=== PATIENT | female | born 1955 | race Caucasian/White ===

== ENCOUNTER 2017-01-28 08:34 | Day surgery (SDC) | payer OTHER, MEDICAID ==
[~2017-01-28] VITALS: Ht 160 cm; Wt 59.1 kg
[~2017-01-28 08:34] MED LIST: ATOR80TA PO; BACT2OIN TOP; ESTR1.25; FENO50TA PO; FURO1TAB93 PO; GLUCTAB PO; HYDR-3133 PO; LANTUSP SQ; LEVE750T8 PO; LISI40TA PO; NAPR550 PO; NOVOLOGP2 SQ; VERA240CR PO; ZOFR4TAB3 PO
[2017-01-28 08:46] VITALS: BP 193/81; PULSE 63; RESP 18; TEMP 97.9; O2SAT 98
[2017-01-28] MEDS ORDERED: LEVE750T8 PO (08:57)
[2017-01-28] MEDS ORDERED: ATOR20TA15 PO (08:57)
[2017-01-28] MEDS ORDERED: NAPR500T PO (08:57)
[2017-01-28] MEDS ORDERED: FLUN25I EACH NARE (08:57)
[2017-01-28] MEDS ORDERED: TIZA4TAB PO (08:57)
[2017-01-28] MEDS ORDERED: VERA360C PO (08:57)
[2017-01-28] MEDS ORDERED: ESTR1.25 PO (08:57)
[2017-01-28] MEDS ORDERED: LISI40TA PO (08:57)
[2017-01-28 09:43] LABS: APTT (PATIENT) 28.7 SEC (24.3-30.1); INTERNATIONAL NORMALIZED RATIO 0.9 RATIO; PROTHROMBIN TIME - PATIENT 10.1 SEC (9.8-11.6)
[2017-01-28 10:55] VITALS: BP 169/89; PULSE 48; PULSE 51; RESP 16; TEMP 97.6; O2SAT 97
--- NOTE | 2017-01-28 11:00 | PD.RAD ---
Post Procedure Progress Note Pre Procedure Diagnosis: (1) Generalized seizure Post Procedure Diagnosis: (1) Generalized seizure Procedure Date: Jan 28, 2017 Supervising Radiologist: Alexandro Byrnes JR Proceduralist/Assist: RT Alexa(R)(CV) Anesthesia: Local Plan of Activity Patient to Unit: ROPU Patient Condition: Good See PACS Report for procedural detail/treatment Spinal Procedure Lumbar Puncture L3-L4 Fluid Removal (CCs): 11 Fluid Description: Clear Puncture Time: 10:41 Findings: Opening pressure: 14.8 cm H2O Jr. Fitz,Alexandro Galeano MD Jan 28, 2017 11:00
[2017-01-28 12:17] LABS: CSF LYMPHOCYTES 0 %; CSF NEUTROPHILS 0 %; GROSS BLOOD TUBE #1 0 (0); GROSS BLOOD TUBE #2 0 (0); GROSS BLOOD TUBE #3 0 (0); GROSS BLOOD TUBE #4 0 (0); SUPERNATE COLOR TUBE #1 CLEAR (CLEAR); SUPERNATE COLOR TUBE #2 CLEAR (CLEAR); SUPERNATE COLOR TUBE #3 CLEAR (CLEAR); SUPERNATE COLOR TUBE #4 CLEAR (CLEAR); VOLUME TUBE # 1 2.6 ML; VOLUME TUBE # 2 2.5 ML; VOLUME TUBE # 3 2.5 ML; VOLUME TUBE # 4 2.6 ML; WBC TUBE #4 0 /MM3 (0-10)
[2017-01-28 13:30] VITALS: BP 164/89; PULSE 60; RESP 16; O2SAT 96
--- NOTE | 2017-01-28 14:11 | RADRPT ---
EXAM DATE/TIME: 01/28/2017 10:47 [facility] COMPARISON: No previous studies available for comparison. INDICATIONS : Evaluate for multiple sclerosis. MEDICAL HISTORY : 1.breast cancer 2. high cholesterol 3. HTN 4. seizures 5. DM 6. kidney disease 7. neuropathy SURGICAL HISTORY : 1. Breast surgery x2 2.neck and spine surgery 3. bilateral hand surgery 4. hysterectomy 5. teeth extractions 6. cholecystectomy 2. ENCOUNTER: Initial ACUITY: 1 year PAIN SCORE: 0/10 LUMBAR PUNCTURE TIME: 1041 hours FLUORO TIME: 0.8 minutes IMAGE SERIES: 0 ACCESS LEVEL: L3-4 OPENING PRESSURE: 14.8 cm of water Not requested. FLUID: 11 cc of clear CSF was collected and sent to the laboratory for analysis. PROCEDURE : 1. Fluoroscopic guided lumbar puncture. 2. Recording of opening pressure. The risks, benefits and alternatives to the procedure were explained and verbal and written consent w as obtained. The site was prepped in sterile fashion. Full sterile technique was used, including ca p, mask, sterile gloves and gown and a large sterile sheet. Hand hygiene and 2% chlorhexidine and/or betadine/alcohol prep was utilized per protocol for cutaneous antisepsis. The skin and subcutaneous tissues were infiltrated with local anesthetic solution. With fluoroscopic guidance the lumbar thecal sac was punctured at the above level described above and the opening pressure was recorded. The above described fluid was removed without difficulty. The patient tolerated the procedure well and there were no complications. CONCLUSION: Uncomplicated fluoroscopically guided lumbar puncture with pressures as above. Alexandro Byrnes Jr., MD on January 28, 2017 at 14:09 Board Certified Radiologist. This report was verified electronically.
[2017-01-29 16:20] LABS: ALBUMIN SERUM 4060 mg/dL (3200 - 4800); IGG CSF 2.2 mg/dL (<=8.1); IGG INDEX CSF 0.41 (<=0.85); IGG SERUM 880 mg/dL (767 - 1590); IGG/ALBUMIN CSF 0.09 (<=0.21); IGG/ALBUMIN SERUM 0.22 (<=0.40); OLIGOCLONAL BANDING CSF 0 bands (()); OLIGOCLONAL BANDING INTERPRET 0 bands (<4); OLIGOCLONAL BANDING SERUM 0 bands (())
[2017-01-29 16:48] LABS: LYME IGG IMMUNOBLOT CSF None Detected bands (None Detected); LYME IGM IMMUNOBLOT CSF None Detected bands (None Detected)
[2017-01-30 19:53] LABS: VDRL CSF NON-REACTIVE (())
[2017-01-31 11:07] LABS: CSF CRYPTOCOCCUS AG CONF ND (NOT DETECTD)
== END 2017-01-28 13:45 | disposition home or self-care (01) ==
LOC: HROP 08:34 → HRIP 08:34 → HROP 13:45
PROVIDERS: ATTEND Psychiatry & Neurology Neurology
DX: G35 Multiple sclerosis (principal); I10 Essential (primary) hypertension; R56.9 Unspecified convulsions; Z85.3 Personal history of malignant neoplasm of breast
CPT/HCPCS: 62270; 77003; 82040; 82042; 82784; 82945; 83873; 83916; 84157; 85610; 85730; 86403; 86592; 86618; 87015; 87070; 87102; 87116; 87205; 87206; 89051

== ENCOUNTER 2017-04-13 17:01 | Emergency (ER) | payer OTHER, MEDICAID ==
[~2017-04-13 17:01] MED LIST changes: +ATOR20TA15 PO; -ATOR80TA PO; -BACT2OIN TOP; -ESTR1.25; +ESTR1.25 PO; -FENO50TA PO; +FLUN25I EACH NARE; -FURO1TAB93 PO; -GLUCTAB PO; -HYDR-3133 PO; -LANTUSP SQ; +NAPR500T2 PO; -NAPR550 PO; -NOVOLOGP2 SQ; +TIZA4TAB PO; -VERA240CR PO; +VERA360C PO; -ZOFR4TAB3 PO
[2017-04-13] MEDS ORDERED: SODIUM CHLOR 0.9% 1000 ML INJ 1,000 ML IV SCH (17:20)
[2017-04-13] MEDS ORDERED: ONDANSETRON HCL 4 MG/2 ML VIAL IVP ONE (17:30)
[2017-04-13] MEDS ORDERED: PANTOPRAZOLE SODIUM 40 MG VIAL IVP ONE (17:30)
[2017-04-13] MEDS ORDERED: SODIUM CHLORIDE 0.9% FLUSH 10 ML FLUSH IV FLUSH PRN (17:30)
[2017-04-13] MEDS ORDERED: HYDROmorphone HCL PF 2 MG/ML VIAL IVS ONE (17:30)
[2017-04-13] MEDS ORDERED: LIDOCAINE VISCOUS 2% SOLN 15 ML UDC PO ONE (17:30)
[2017-04-13] MEDS ORDERED: ALUMINUM/MAGNESIUM/SIMETH 30 ML CUP PO ONE (17:30)
[2017-04-13] MEDS ORDERED: METF500T PO (17:31)
--- NOTE | 2017-04-13 17:31 | PD ---
HPI Chief Complaint: Abdominal Pain Time Seen by Provider: 17:16 Travel History International Travel<30 days: No Contact w/Intl Traveler<30days: No Traveled to known affect area: No History of Present Illness HPI 62-year-old female with history of diabetes, pancreatitis, here for evaluation of abdominal pain that feels similar to an episode of pancreatitis in the past. Patient reports that for the last 4 days she has been having worsening epigastric abdominal pain that radiates to her back him and described as sharp. She is not sure why she has had pancreatitis in the past. She does not abuse alcohol. She states that her cholesterol has been well controlled. She denies fevers or chills. She has felt nauseous but has not vomited. No diarrhea. Pain is worse with movements and palpation as well as after eating. History of hysterectomy, cholecystectomy, bilateral tubal ligation. No chest pain or dyspnea. No urinary symptoms. PFSH Past Medical History Blood Disorders: No Bipolar Disorder: Yes Depression: Yes Cancer: No Cardiovascular Problems: No High Cholesterol: Yes Diabetes: Yes Diminished Hearing: No Endocrine: Yes Gastrointestinal Disorders: Yes (gastroparesis) GERD: Yes Genitourinary: Yes (fibroid uterus) Hiatal Hernia: No Hypertension: Yes Musculoskeletal: Yes (sciatica) Neurologic: Yes (dm neuropathy) Psychiatric: Yes (bipolar) Reproductive: No Respiratory: No Immunizations Current: No Pancreatitis: Yes Seizures: Yes (this admission ) Thyroid Disease: No Triglycerides - High: Yes Menopausal: Yes Past Surgical History AICD: No Cholecystectomy: Yes Gynecologic Surgery: Yes (LEFT BREAST X 2) Hysterectomy: Yes Joint Replacement: No Neurologic Surgery: Yes (CERVICAL DISC REMOVAL) Pacemaker: No Other Surgery: Yes (HEMORROIDECTOMY/NECK) Social History Alcohol Use: No Tobacco Use: No Substance Use: No Allergies-Medications (Allergen,Severity, Reaction): Coded Allergies: enalaprilat (Unverified Allergy, Severe, HIVES, RASH, 04/13/17) hydrochlorothiazide (Unverified Allergy, Severe, HAIR FALLS OUT, 04/13/17) latex (Unverified Allergy, Severe, HIVES,ITCH, 04/13/17) meperidine (Unverified Allergy, Severe, HIVES, ITCHING, 04/13/17) morphine (Unverified Allergy, Severe, 04/13/17) mushroom (Unverified Allergy, Severe, 04/13/17) tomato (Unverified Allergy, Severe, 04/13/17) Reported Meds & Prescriptions Reported Meds & Active Scripts Active Reported Metformin (Metformin HCl) 500 Mg Tab Unknown Dose PO BIDPC Flunisolide Nasal [place] (Flunisolide) 0.025 Mg/Act Naspr 2 [place] EACH NARE BID Lisinopril 40 Mg Tab 40 Mg PO BID Verapamil SR (Verapamil HCl) 360 Mg Cap 360 Mg PO DAILY Naproxen 500 Mg Tab 500 Mg PO BID Levetiracetam 750 Mg Tab 750 Mg PO BID Tizanidine (Tizanidine HCl) 4 Mg Tab 4 Mg PO TID Atorvastatin (Atorvastatin Calcium) 20 Mg Tab 20 Mg PO HS Premarin (Estrogens Conjugated) 1.25 Mg Tab 1.25 Mg PO DAILY Review of Systems Except as stated in HPI: all other systems reviewed are Neg Physical Exam Narrative GENERAL: Well-developed, well-nourished, comfortable, no apparent distress. SKIN: Focused skin assessment warm/dry. Lower back with circular areas with excoriations that appear to be from insect bites. No warmth or erythema or purulent drainage. Negative [place] or Bose Lo sign. HEAD: Atraumatic. Normocephalic. EYES: Pupils equal and round. No scleral icterus. No injection or drainage. ENT: Mucous membranes pink and moist. NECK: Trachea midline. No JVD. CARDIOVASCULAR: Regular rate and rhythm. RESPIRATORY: No accessory muscle use. Clear to auscultation. Breath sounds equal bilaterally. GASTROINTESTINAL: Abdomen soft, nondistended. Moderate epigastric tenderness without peritoneal signs. Rest of abdomen is mildly tender. Normal bowel sounds. No hernias. MUSCULOSKELETAL: No obvious deformities. No clubbing. No cyanosis. No edema. NEUROLOGICAL: Awake and alert. No obvious cranial nerve deficits. Motor grossly within normal limits. Normal speech. PSYCHIATRIC: Appropriate mood and affect; insight and judgment normal. Data Data Last Documented VS Vital Signs Date Time Temp Pulse Resp B/P (MAP) Pulse Ox O2 Delivery O2 Flow Rate FiO2 04/13/17 21:34 60 14 183/88 (119) 99 Room Air 04/13/17 19:24 98.1 Orders Orders Complete Blood Count With Diff (04/13/17 17:20) Comprehensive Metabolic Panel (04/13/17 17:20) Lipase (04/13/17 17:20) Prothrombin Time / Inr (Pt) (04/13/17 17:20) Act Partial Throm Time (Ptt) (04/13/17 17:20) Urinalysis - C+S If Indicated (04/13/17 17:20) Ct Abd/Pel W Iv Contrast(Rout) (04/13/17 17:20) Iv Access Insert/Monitor (04/13/17 17:20) Ecg Monitoring (04/13/17 17:20) Oximetry (04/13/17 17:20) Hydromorphone Pf Inj (Dilaudid Pf Inj) (04/13/17 17:30) Ondansetron Inj (Zofran Inj) (04/13/17 17:30) Pantoprazole Inj (Protonix Inj) (04/13/17 17:30) Sodium Chlor 0.9% 1000 Ml Inj (Ns 1000 M (04/13/17 17:20) Sodium Chloride 0.9% Flush (Ns Flush) (04/13/17 17:30) Electrocardiogram (04/13/17 17:20) Al-Mag Hy-Si 40-40-4 Mg/Ml Liq (Mag-Al P (04/13/17 17:30) Lidocaine 2% Viscous (Xylocaine 2% Visco (04/13/17 17:30) Ckmb (Isoenzyme) Profile (04/13/17 17:20) Troponin I (04/13/17 17:20) Metoclopramide Inj (Reglan Inj) (04/13/17 18:45) Iohexol 350 Inj (Omnipaque 350 Inj) (04/13/17 18:59) Sucralfate Liq (Carafate Liq) (04/13/17 19:45) Troponin I (04/13/17 19:53) Promethazine Inj (Phenergan Inj) (04/13/17 20:00) Electrocardiogram (04/13/17 ) Labs Laboratory Tests Test 04/13/17 17:56 04/13/17 19:15 04/13/17 20:20 White Blood Count 8.6 TH/MM3 Red Blood Count 4.69 MIL/MM3 Hemoglobin 14.6 GM/DL Hematocrit 43.1 % Mean Corpuscular Volume 92.0 FL Mean Corpuscular Hemoglobin 31.1 PG Mean Corpuscular Hemoglobin Concent 33.8 % Red Cell Distribution Width 12.3 % Platelet Count 151 TH/MM3 Mean Platelet Volume 9.0 FL Neutrophils (%) (Auto) 52.1 % Lymphocytes (%) (Auto) 37.7 % Monocytes (%) (Auto) 8.2 % Eosinophils (%) (Auto) 1.4 % Basophils (%) (Auto) 0.6 % Neutrophils # (Auto) 4.5 TH/MM3 Lymphocytes # (Auto) 3.2 TH/MM3 Monocytes # (Auto) 0.7 TH/MM3 Eosinophils # (Auto) 0.1 TH/MM3 Basophils # (Auto) 0.1 TH/MM3 CBC Comment DIFF FINAL Differential Comment Prothrombin Time 10.0 SEC Prothromb Time International Ratio 0.9 RATIO Activated Partial Thromboplast Time 24.1 SEC Blood Urea Nitrogen 10 MG/DL Creatinine 0.89 MG/DL Random Glucose 95 MG/DL Total Protein 7.3 GM/DL Albumin 3.6 GM/DL Calcium Level 8.8 MG/DL Alkaline Phosphatase 61 U/L Aspartate Amino Transf (AST/SGOT) 21 U/L Alanine Aminotransferase (ALT/SGPT) 19 U/L Total Bilirubin 0.4 MG/DL Sodium Level 137 MEQ/L Potassium Level 4.3 MEQ/L Chloride Level 105 MEQ/L Carbon Dioxide Level 24.3 MEQ/L Anion Gap 8 MEQ/L Estimat Glomerular Filtration Rate 64 ML/MIN Total Creatine Kinase 81 U/L Troponin I LESS THAN 0.02 NG/ML LESS THAN 0.02 NG/ML Lipase 197 U/L Urine Color YELLOW Urine Turbidity CLEAR Urine pH 5.5 Urine Specific [place] 1.029 Urine Protein NEG mg/dL Urine Glucose (UA) NEG mg/dL Urine Ketones NEG mg/dL Urine Occult Blood TRACE Urine Nitrite NEG Urine Bilirubin NEG Urine Leukocyte Esterase NEG Urine RBC 0-3 /hpf Urine WBC 0-2 /hpf Urine Squamous Epithelial Cells 0-5 /hpf Microscopic Urinalysis Comment CULT NOT INDICATED MDM Medical Decision Making Medical Screen Exam Complete: Yes Emergency Medical Condition: Yes Interpretation(s) EKG: Sinus, rate 60, rightward axis, normal intervals, no acute ischemic abnormality. Differential Diagnosis Pancreatitis, gastritis, peptic ulcer disease, hepatobiliary disease, ACS Narrative Course Vital signs: CBC: WBC 8.6, hemoglobin 14.6, hematocrit 43.1, platelets 151. CMP is unremarkable. Lipase is 197. Cardiac enzymes are negative. CT abdomen pelvis: Mild diverticulosis with no inflammatory changes or obstruction. Normal appendix. Small hiatal hernia. Status post cholecystectomy. The patient became nauseous and vomited shortly after receiving GI cocktail. She was given Zofran and Reglan. Patient became nauseous again and started vomiting. Her emesis is clear and nonbloody. Repeat troponin is also negative. Repeat EKG is unchanged from the first. Patient was given a third antiemetic, Phenergan this time, and is feeling much improved. She also reports having diarrhea. She likely has gastroenteritis with gastritis. I do not believe her symptoms are cardiac in nature. She was made aware of all findings. She was given a dose of Carafate and is tolerating clear liquids orally. At this point I believe she is stable for discharge home with outpatient follow-up with her primary care physician. She states she will call them tomorrow. She'll be given a prescription for antiemetics, Protonix, and Carafate. She was informed on when to return to the emergency department. She verbalizes understanding and agreement with plan. Diagnosis Primary Impression: Gastroenteritis Additional Impression: Abdominal pain Qualified Codes: R10.13 - Epigastric pain Referrals: Zahraa Blankenship MD 3 days [employer] Artist Primary Care Physician 1 day Additional Instructions: Follow-up with your primary care physician tomorrow. Take medications as prescribed. Return to the emergency department for worsening symptoms or any other concerns. Scripts Promethazine (Phenergan) 25 Mg Tablet 25 MG PO Q6H Y for NAUSEA OR VOMITING, #30 TAB 0 Refills Prov: Thang Steiner MD 04/13/17 Sucralfate Liq (Carafate Liq) 1 Gm/10 Ml Susp 1 GM PO TID for Duodenal ulcer, #900 ML 0 Refills on empty stomach Prov: Thang Steiner MD 04/13/17 Pantoprazole (Protonix) 40 Mg Tab 40 MG PO DAILY for Reflux, #30 TAB 0 Refills Prov: Thang Steiner MD 04/13/17 Disposition: 01 DISCHARGE HOME Condition: Stable Thang Steiner MD Apr 13, 2017 17:31
[2017-04-13 18:01] LABS: AUTOMATED NEUTROPHIL # 4.5 TH/MM3 (1.8-7.7); BASOPHIL # 0.1 TH/MM3 (0-0.2); BASOPHIL % 0.6 % (0.0-2.0); EOSINOPHIL # 0.1 TH/MM3 (0-0.4); EOSINOPHIL % 1.4 % (0.0-4.0); HEMATOCRIT 43.1 % (35.0-46.0); HEMO FLAGS DIFF FINAL; LYMPH % 37.7 % (9.0-44.0); LYMPHOCYTE # 3.2 TH/MM3 (1.0-4.8); MEAN CORPUSCULAR HEMOGLOBIN 31.1 PG (27.0-34.0); MEAN CORPUSCULAR HGB CONC 33.8 % (32.0-36.0); MONO % 8.2 % (0.0-8.0); NEUT % 52.1 % (16.0-70.0); PLATELET COUNT 151 TH/MM3 (150-450); RED BLOOD COUNT 4.69 MIL/MM3 (4.00-5.30); RED CELL DISTRIBUTION WIDTH 12.3 % (11.6-17.2); WHITE BLOOD COUNT 8.6 TH/MM3 (4.0-11.0)
[2017-04-13 18:09] LABS: CHLORIDE 105 MEQ/L (98-107); POTASSIUM 4.3 MEQ/L (3.5-5.1); SODIUM (NA) 137 MEQ/L (136-145)
[2017-04-13 18:13] LABS: ANION GAP 8 MEQ/L (5-15); BICARBONATE 24.3 MEQ/L (21.0-32.0); BLOOD UREA NITROGEN 10 MG/DL (7-18)
[2017-04-13 18:15] LABS: APTT (PATIENT) 24.1 SEC (24.3-30.1); INTERNATIONAL NORMALIZED RATIO 0.9 RATIO
[2017-04-13 18:16] LABS: ALT (GPT) 19 U/L (10-53); AST (GOT) 21 U/L (15-37); GLOMERULAR FILTRATION RATE 64 ML/MIN (>89)
[2017-04-13 18:18] LABS: TOTAL BILIRUBIN ADULT 0.4 MG/DL (0.2-1.0)
[2017-04-13 18:19] LABS: ALKALINE PHOSPHATASE 61 U/L (45-117)
[2017-04-13 18:26] LABS: CREATINE KINASE 81 U/L (26-192)
[2017-04-13] MEDS ORDERED: METOCLOPRAMIDE HCL 10 MG/2 ML VIAL IV PUSH ONE (18:45)
[2017-04-13] MEDS ORDERED: IOHEXOL 350 MG/ML 10 ML VIAL (for RAD DIAG) IVCONTRAST ONE (18:59)
--- NOTE | 2017-04-13 19:12 | RADRPT ---
EXAM DATE/TIME: 04/13/2017 18:51 [facility] COMPARISON: No previous studies available for comparison. INDICATIONS : Epigastric pain. IV CONTRAST: 85 cc Omnipaque 350 (iohexol) IV ORAL CONTRAST: No oral contrast ingested. RADIATION DOSE: 4.04 CTDIvol (mGy) MEDICAL HISTORY : Hypertension. Gastroparesis. Pancreatitis. Diabetes. SURGICAL HISTORY : Cholecystectomy. Hysterectomy. ENCOUNTER: Initial ACUITY: 4 - 6 days PAIN SCALE: 5/10 LOCATION: upper quadrant TECHNIQUE: Volumetric scanning of the abdomen and pelvis was performed. Using automated exposure control and ad justment of the mA and/or kV according to patient size, radiation dose was kept as low as reasonably achievable to obtain optimal diagnostic quality images. DICOM format image data is available electro nically for review and comparison. FINDINGS: LOWER LUNGS: The visualized lower lungs are clear. LIVER: Homogeneous density with small benign cysts noted in the right lobe. There is no dilation of the bili sorin tree. Status post cholecystectomy. SPLEEN: Normal size without lesion. PANCREAS: Within normal limits. KIDNEYS: Normal in size and shape. There is no mass, stone or hydronephrosis. ADRENAL GLANDS: Within normal limits. VASCULAR: There is no aortic aneurysm. BOWEL/MESENTERY: There is a small hiatal hernia. No oral contrast was given limiting assess activity of the exam. Ther e is a normal appendix. There are scattered diverticuli. The stomach, small bowel, and colon demonstr ate no acute abnormality. There is no free intraperitoneal air or fluid. ABDOMINAL WALL: Within normal limits. RETROPERITONEUM: There is no lymphadenopathy. BLADDER: No wall thickening or mass. REPRODUCTIVE: Within normal limits. INGUINAL: There is no lymphadenopathy or hernia. MUSCULOSKELETAL: Within normal limits for patient age. CONCLUSION: 1. Mild diverticulosis with no inflammatory change or obstruction. 2. Normal appendix. 3. Small hiatal hernia. 4. Status post cholecystectomy. Surjit Giang MD on April 13, 2017 at 19:07 Board Certified Radiologist. This report was verified electronically.
[2017-04-13 19:24] VITALS: BP 190/87; PULSE 63; RESP 15; TEMP 98.1; O2SAT 97
[2017-04-13 19:33] LABS: BLOOD, URINE TRACE (NEG); GLUCOSE,URINE NEG (NEG); KETONE, URINE NEG (NEG); NITRITE,URINE NEG (NEG); PH, URINE 5.5 (5.0-8.5)
[2017-04-13] MEDS ORDERED: SUCRALFATE 1 GM/10 ML CUP PO ONE (19:45)
[2017-04-13 19:51] LABS: COMMENT (UR) CULT NOT INDICATED; CULTURE IF INDICATED CULT NOT INDICATED; RBC, URINE 0-3 /hpf (0-3); SQUAMOUS EPITHELIAL CELL URINE 0-5 /hpf (0-5); URINE COLOR YELLOW (YELLW/STRAW); WBC, URINE 0-2 /hpf (0-5)
[2017-04-13] MEDS ORDERED: PROMETHAZINE INJ 25 MG/ML VIAL IM ONE (20:00)
--- NOTE | 2017-04-13 21:04 | EKG ---
Date Performed: 04/13/2017 Time Performed: 17:35:00 PTAGE: 62 years EKG: Sinus rhythm FREQUENT PACS JUNCTIONAL BEATS MARKED RIGHT AXIS DEVIATION ABNORMAL ECG PREVIOUS TRACING : 11/26/2013 12.32 Compared to prior tracing no significant change DOCTOR: Leonidas Rich Interpretating Date/Time 04/13/2017 21:03:15
[2017-04-13 21:08] VITALS: BP 186/77; PULSE 78; RESP 15; O2SAT 97
[2017-04-13 21:34] VITALS: BP 183/88; PULSE 60; RESP 14; O2SAT 99
[2017-04-13] MEDS ORDERED: CARA1SUS3 PO (21:47)
[2017-04-13] MEDS ORDERED: PROT40TA PO (21:47)
[2017-04-13] MEDS ORDERED: PROM25TA10 PO (21:47)
--- NOTE | 2017-04-14 15:40 | EKG ---
Date Performed: 04/13/2017 Time Performed: 20:30:42 PTAGE: 62 years EKG: Sinus rhythm WITH OCCASIONAL SUPRAVENTRICULAR PREMATURE COMPLEXES BORDERLINE ECG PREVIOUS TRACING : 04/13/2017 17.35 Compared to prior tracing no significant change DOCTOR: Leonidas Rich Interpretating Date/Time 04/14/2017 15:40:02
== END 2017-04-13 22:02 | disposition home or self-care (01) ==
LOC: PHED 17:01
DX: K52.9 Noninfective gastroenteritis and colitis, unspecified (principal); E11.43 Type 2 diabetes mellitus with diabetic autonomic (poly)neuropathy; K31.84 Gastroparesis; I10 Essential (primary) hypertension; Z79.84 Long term (current) use of oral hypoglycemic drugs
CPT/HCPCS: 74177; 80053; 81001; 82550; 83690; 84484; 85025; 85610; 85730; 93005; 96361; 96372; 96374; 96375; 99285; C9113; J1170; J2405; J2550; J2765; J7030; Q9967